=== PATIENT | female | born 1990 | race African-American/Black ===

== ENCOUNTER 2016-10-29 18:47 | Emergency (ER) | payer OTHER ==
[~2016-10-29 18:47] MED LIST: DICY10CA3 PO; HYDR-971 PO; NAPR500T PO; ONDA4TAB10 SL
[2016-10-29] MEDS ORDERED: DEXAMETHASONE SOD PHOS 20 MG/5 ML VIAL. IV ONE (19:15)
[2016-10-29] MEDS ORDERED: DIPHENHYDRAMINE 50 MG/ML VIAL IVP ONE (19:15)
[2016-10-29] MEDS ORDERED: IV NORMAL SALINE 1000ML BAG 1,000 ML IV ONE (19:15)
[2016-10-29] MEDS ORDERED: KETOROLAC TROMETHAMINE 30 MG/ML SYRINGE. IV ONE (19:15)
[2016-10-29] MEDS ORDERED: PROCHLORPERAZINE 10 MG/2 ML VIAL. IV ONE (19:15)
--- NOTE | 2016-10-29 19:25 | PHYS DOC ---
Past Medical History Past Medical History: Asthma, Migraines Additional Past Medical Histor: interstitial cystitis, neutropenia, unspecified immune deficiency Past Surgical History: Appendectomy, Tonsillectomy Additional Past Surgical Histo: D&C, HERNIA REPAIR, laparotomy for abcsess Additional Information: nonsmoker Alcohol Use: None Drug Use: None Adult General Chief Complaint Chief Complaint: HEADACHE HPI HPI Patient is a 26 year old female with history of migraine headaches who presents with headache typical of her migraines starting at 0900 today. The onset was gradual. She had her typical aura of tingling in the hands prior to the onset of the headache. She has photophobia and bilateral blurred vision. She feels dizzy. She has had nausea with 5 episodes of emesis. She denies fever. She takes daily metoprolol for prophylaxis. She also took Tylenol, Lyrica , and protriptyline today without relief of her headache. She sees a PCP at [facility]. Review of Systems Review of Systems Constitutional: Denies fever or chills. [] Eyes: Denies redness, or eye pain. Reports bilateral blurred vision and photophobia. HENT: Denies ear pain or sore throat. Reports nasal congestion. Respiratory: Denies cough or shortness of breath. [] Cardiovascular: Denies chest pain, palpitations or edema. [] GI: Denies abdominal pain, bloody stools or diarrhea. Reports nausea and vomiting. : Denies dysuria, hematuria or urinary frequency. [] Musculoskeletal: Denies back pain or joint pain. [] Integument: Denies rash or skin lesions. [] Neurologic: Denies focal weakness or sensory changes. Reports migraine headache and dizziness. Endocrine: Denies polyuria or polydipsia. [] Psych: Denies anxiety or depression. [] All systems reviewed and negative unless otherwise stated in the HPI. Current Medications Current Medications Current Medications Medications (Trade) Dose Ordered Sig/Thalia Start Time Stop Time Status Last Admin Dose Admin Dexamethasone Sodium Phosphate (Decadron) 10 mg 1X ONCE 10/29/16 19:15 10/29/16 19:16 DC 10/29/16 19:43 10 MG Dihydroergotamine Mesylate (Dhe) 1 mg 1X ONCE 10/29/16 21:00 10/29/16 21:01 DC 10/29/16 21:16 1 MG Diphenhydramine HCl (Benadryl) 25 mg 1X ONCE 10/29/16 19:15 10/29/16 19:16 DC 10/29/16 19:41 25 MG Ketorolac Tromethamine 30 mg 30 mg 1X ONCE 10/29/16 19:15 10/29/16 19:16 DC 10/29/16 19:43 30 MG Prochlorperazine Edisylate (Compazine) 10 mg 1X ONCE 10/29/16 19:15 10/29/16 19:16 DC 10/29/16 19:43 10 MG Sodium Chloride (Iv Sodium Chloride 0.9% 1000ml Bag) 1,000 ml @ 1,000 mls/hr 1X ONCE 10/29/16 19:15 10/29/16 20:14 DC 10/29/16 19:44 1,000 MLS/HR Allergies Allergies Allergies Coded Allergies Type Severity Reaction Last Updated Verified metoclopramide Adverse Reaction Intermediate IMPACTION 06/20/15 Yes prednisone Adverse Reaction Intermediate MIGRAINES 06/20/15 Yes Physical Exam Physical Exam Constitutional: Well developed, well nourished, no acute distress, non-toxic appearance. [] HENT: Normocephalic, atraumatic, bilateral external ears normal, oropharynx moist, no oral exudates, nose normal. Bilateral TMs without erythema or bulging. There is no posterior pharyngeal erythema or tonsillar edema. Eyes: PERRLA, EOMI, conjunctiva normal, no discharge. [] Neck: Normal range of motion, no tenderness, supple, no stridor. There is no nuchal rigidity or meningeal signs. Cardiovascular: Heart rate regular rhythm, no murmur [] Lungs & Thorax: Bilateral breath sounds clear to auscultation without wheezing , rales, or rhonchi. Abdomen: Bowel sounds normal, soft, no tenderness, no masses, no pulsatile masses. [] Skin: Warm, dry, no erythema, no rash. [] Back: No tenderness, no CVA tenderness. [] Extremities: No tenderness, no cyanosis, no clubbing, ROM intact, no edema. [] Neurologic: Alert and oriented X 3, normal motor function, normal sensory function, no focal deficits noted. CN II-XII grossly intact. The patient walks with a normal steady gait. Psychologic: Affect normal, judgement normal, mood normal. [] Current Patient Data Vital Signs Vital Signs Date Time Temp Pulse Resp B/P Pulse Ox O2 Delivery O2 Flow Rate FiO2 10/29/16 20:20 77 18 113/70 99 Room Air 10/29/16 18:53 98.5 98.5 Lab Values Laboratory Tests Test 10/29/16 18:17 POC Urine HCG, Qualitative Hcg negative (Negative) EKG EKG [] Radiology/Procedures Radiology/Procedures [] Course & Med Decision Making Course & Med Decision Making Pertinent Labs and Imaging studies reviewed. (See chart for details) Patient with history of migraine headaches presents with headache typical of her usual migraines today. Her usual migraine medications did not help at home. On exam, there are no neurologic deficits, nuchal rigidity, or meningeal signs. She is given IV migraine cocktail including Phenergan, Benadryl, Decadron, Toradol, and normal saline bolus. Pain improved to 4-5/10. She was then given DHE with resolution of her headache. She complained of continued nausea after the DHE. Nausea resolved with Zofran. She is discharged home in stable condition. She is instructed to continue her home migraine medications. Return precautions were discussed. She verbalizes understanding and agrees with plan. Dragon Disclaimer Dragon Disclaimer This electronic medical record was generated, in whole or in part, using a voice recognition dictation system. Departure Departure Impression: Primary Impression: Migraine Disposition: 01 HOME, SELF-CARE Condition: IMPROVED Referrals: NO PCP (PCP) Patient Instructions: Migraine Headache, [id number] Additional Instructions: You were seen today for migraine headache. Please continue to take your home medications for migraines. Please follow-up with your primary care doctor within the next week. Return to the emergency department if you have any new or concerning symptoms. Problem Qualifiers Primary Impression: Migraine Migraine type: with aura Status migrainosus presence: without status migrainosus Intractability: not intractable Qualified Code: G43.109 - Migraine with aura, not intractable, without status migrainosus JOSE JUAN MORE Oct 29, 2016 19:24
[2016-10-29] MEDS ORDERED: DIHYDROERGOTAMINE 1 MG/ML AMPUL. IVP ONE (21:00)
[2016-10-29 21:50] VITALS: BP 123/83
[2016-10-29] MEDS ORDERED: ONDANSETRON PF 4 MG/2 ML VIAL. IV ONE (22:00)
== END 2016-10-29 22:20 | disposition home or self-care (01) ==
LOC: ER 18:47
DX: G43.109 Migraine with aura, not intractable, without status migrainosus (principal); J45.909 Unspecified asthma, uncomplicated; Z88.8 Allergy status to other drugs, medicaments and biological substances
CPT/HCPCS: 81025; 96361; 96374; 96375; 99284; J0780; J1100; J1110; J1200; J1885; J2405; J7030

== ENCOUNTER 2016-12-14 22:57 | Emergency (ER) | payer OTHER ==
[~2016-12-14] VITALS: Ht 152.4 cm; Wt 82.6 kg
[2016-12-14 23:16] LABS: BILIRUBIN,URINE NEGATIVE (NEG); GLUCOSE,URINE NEGATIVE (NEG); NITRITE,URINE NEGATIVE (NEG); PH,URINE 5.5; PROTEIN,URINE NEGATIVE (NEG-TRACE); UROBILINOGEN,URINE 0.2 mg/dL (0.2 mg/dL)
[2016-12-14 23:17] LABS: NEG OBC UR NEG; POS OBC UR POS
[2016-12-14 23:29] LABS: BACTERIA,URINE 0 /HPF (0-FEW); RBC,URINE 0 /HPF (0-2); SQUAMOUS EPITHELIAL CELL,UR FEW /LPF; WBC,URINE OCC /HPF (0-4)
[2016-12-14] MEDS ORDERED: ONDANSETRON PF 4 MG/2 ML VIAL. IV ONE (23:30)
[2016-12-14] MEDS ORDERED: MORPHINE SULFATE 4 MG/ML DISP.SYRIN. IV ONE (23:30)
[2016-12-14] MEDS ORDERED: CONTRAST GIVEN MC PRN (23:45)
[2016-12-14] MEDS ORDERED: IOHEXOL 300 MG/ML 75 ML VIAL IV ONE (23:45)
--- NOTE | 2016-12-14 23:52 | PHYS DOC ---
Past Medical History Past Medical History: Asthma, Migraines Additional Past Medical Histor: interstitial cystitis, neutropenia, unspecified immune deficiency Past Surgical History: Appendectomy, Tonsillectomy Additional Past Surgical Histo: D&C, HERNIA REPAIR, laparotomy for abcsess Alcohol Use: None Drug Use: None Adult General Chief Complaint Chief Complaint: ABDOMINAL PAIN HPI HPI 26-year-old female who's having significant right inguinal pain for the last several months but it has acutely worsened for the last several days while she exerts herself. She has history of hernia repair 6 years prior in this region. Patient also has history of appendectomy. She states she has mild nausea with no vomiting. Upon my initial assessment, the patient is afebrile and nontoxic in appearance. She states she will occasionally feel the area bulge and she will push it back in. Review of Systems Review of Systems Constitutional: Denies fever or chills [] Eyes: Denies change in visual acuity, redness, or eye pain [] HENT: Denies nasal congestion or sore throat [] Respiratory: Denies cough or shortness of breath [] Cardiovascular: No additional information not addressed in HPI [] GI: Has abdominal pain, has nausea, denies vomiting, denies bloody stools or diarrhea [] : Denies dysuria or hematuria [] Musculoskeletal: Denies back pain or joint pain [] Integument: Denies rash or skin lesions [] Neurologic: Denies headache, focal weakness or sensory changes [] Endocrine: Denies polyuria or polydipsia [] Current Medications Current Medications Current Medications Medications (Trade) Dose Ordered Sig/Thalia Start Time Stop Time Status Last Admin Dose Admin Info (Do NOT chart on this entry -- for MONITORING) 1 each PRN DAILY PRN 12/14/16 23:45 12/16/16 23:44 Iohexol (Omnipaque 300 Mg/ml) 75 ml 1X ONCE 12/14/16 23:45 12/14/16 23:46 DC 12/15/16 00:38 75 ML Morphine Sulfate 4 mg 1X ONCE 12/14/16 23:30 12/14/16 23:31 DC 12/15/16 00:07 4 MG Ondansetron HCl (Zofran) 4 mg 1X ONCE 12/14/16 23:30 12/14/16 23:31 DC 12/15/16 00:07 4 MG Allergies Allergies Allergies Coded Allergies Type Severity Reaction Last Updated Verified metoclopramide Adverse Reaction Intermediate IMPACTION 06/20/15 Yes prednisone Adverse Reaction Intermediate MIGRAINES 06/20/15 Yes Physical Exam Physical Exam Constitutional: Well developed, well nourished, no acute distress, non-toxic appearance. [] HENT: Normocephalic, atraumatic, bilateral external ears normal, oropharynx moist, no oral exudates, nose normal. [] Eyes: PERRLA, EOMI, conjunctiva normal, no discharge. [] Neck: Normal range of motion, no tenderness, supple, no stridor. [] Cardiovascular:Heart rate regular rhythm, no murmur [] Lungs & Thorax: Bilateral breath sounds clear to auscultation [] Abdomen: Bowel sounds normal, soft, moderate inguinal tenderness to the right with no palpable hernia or mass, no masses, no pulsatile masses. [] Skin: Warm, dry, no erythema, no rash. [] Back: No tenderness, no CVA tenderness. [] Extremities: No tenderness, no cyanosis, no clubbing, ROM intact, no edema. [] Neurologic: Alert and oriented X 3, normal motor function, normal sensory function, no focal deficits noted. [] Psychologic: Affect normal, judgement normal, mood normal. [] Current Patient Data Vital Signs Vital Signs Date Time Temp Pulse Resp B/P (MAP) Pulse Ox O2 Delivery O2 Flow Rate FiO2 12/15/16 00:07 18 12/14/16 23:57 87 105/63 (77) 98 Room Air 12/14/16 23:15 98.1 98.1 Lab Values Laboratory Tests Test 12/14/16 22:15 12/14/16 23:05 12/14/16 23:55 12/15/16 00:29 POC Urine HCG, Qualitative Hcg negative (Negative) Urine Collection Type Unknown Urine Color Yellow Urine Clarity Clear Urine pH 5.5 Urine Specific [place] 1.025 Urine Protein Negative mg/dL (NEG-TRACE) Urine Glucose (UA) Negative mg/dL (NEG) Urine Ketones (Stick) Negative mg/dL (NEG) Urine Blood Negative (NEG) Urine Nitrite Negative (NEG) Urine Bilirubin Negative (NEG) Urine Urobilinogen Dipstick 0.2 mg/dL (0.2 mg/dL) Urine Leukocyte Esterase Negative (NEG) Urine RBC 0 /HPF (0-2) Urine WBC Occ /HPF (0-4) Urine Squamous Epithelial Cells Few /LPF Urine Bacteria 0 /HPF (0-FEW) Urine Mucus Mod /LPF Urine Test Negative (NEG) White Blood Count 6.8 x10^3/uL (4.0-11.0) Red Blood Count 4.79 x10^6/uL (3.50-5.40) Hemoglobin 14.1 g/dL (12.0-15.5) Hematocrit 41.6 % (36.0-47.0) Mean Corpuscular Volume 87 fL (79-100) Mean Corpuscular Hemoglobin 29 pg (25-35) Mean Corpuscular Hemoglobin Concent 34 g/dL (31-37) Red Cell Distribution Width 14.3 % (11.5-14.5) Platelet Count 234 x10^3/uL (140-400) Neutrophils (%) (Auto) 47 % (31-73) Lymphocytes (%) (Auto) 40 % (24-48) Monocytes (%) (Auto) 10 % (0-9) H Eosinophils (%) (Auto) 3 % (0-3) Basophils (%) (Auto) 1 % (0-3) Neutrophils # (Auto) 3.2 x10^3uL (1.8-7.7) Lymphocytes # (Auto) 2.7 x10^3/uL (1.0-4.8) Monocytes # (Auto) 0.7 x10^3/uL (0.0-1.1) Eosinophils # (Auto) 0.2 x10^3/uL (0.0-0.7) Basophils # (Auto) 0.0 x10^3/uL (0.0-0.2) Sodium Level 139 mmol/L (136-145) Potassium Level 3.7 mmol/L (3.5-5.1) Chloride Level 104 mmol/L (98-107) Carbon Dioxide Level 27 mmol/L (21-32) Anion Gap 8 (6-14) Blood Urea Nitrogen 16 mg/dL (7-20) Creatinine 0.7 mg/dL (0.6-1.0) Estimated GFR (Cockcroft-Gault) 124.4 Glucose Level 95 mg/dL (70-99) Calcium Level 8.2 mg/dL (8.5-10.1) L Laboratory Tests 12/14/16 23:55 Laboratory Tests 12/15/16 00:29 EKG EKG [] Radiology/Procedures Radiology/Procedures [] Course & Med Decision Making Course & Med Decision Making Pertinent Labs and Imaging studies reviewed. (See chart for details) 26-year-old female is having significant right inguinal pain and will have imaging to rule out an acute abnormality with her known hernia with mesh. I counseled her that she will likely need a mesh repair as her symptoms seem to be acutely worsening and not improving. Laboratory workup was unremarkable. A CT of her abdomen and pelvis is pending at this time. I discussed the case with Dr. Sears. If her CT reveals any acute findings, they will be addressed. If her CT is negative, she will be safe to be discharged home with close follow-up with a general surgeon for her likely hernia related pain. Prescriptions for [place] and Zofran were prescribed. Dragon Disclaimer Dragon Disclaimer This electronic medical record was generated, in whole or in part, using a voice recognition dictation system. Departure Departure Impression: Primary Impression: Abdominal pain Additional Impression: Inguinal hernia Disposition: 01 HOME, SELF-CARE Admitting Physician: Other Condition: STABLE Referrals: NO PCP (PCP) Patient Instructions: Inguinal Hernia, Adult Additional Instructions: Please follow up with the surgeon as discussed for your hernia related pain. Take your pain medication as prescribed and avoid any strenuous activities that may exacerbate your pain. Return to the ER if you develop any worsening of your symptoms. Scripts Ondansetron Hcl (ZOFRAN) 4 Mg Tablet 4 MG PO BID Y for NAUSEA/VOMITING, #10 TAB Prov: MADISON PADILLA DO 12/15/16 Hydrocodone/Apap 5-325 (NORCO 5-325 TABLET) 1 Each Tablet 1 TAB PO PRN Q6HRS Y for PAIN, #10 TAB 0 Refills Prov: MADISON PADILLA DO 12/15/16 Problem Qualifiers MADISON PADILLA DO December 14, 2016 23:52
[2016-12-15 00:05] LABS: BASO % 1 % (0-3); EOS % 3 % (0-3); HEMATOCRIT 41.6 % (36.0-47.0); HEMOGLOBIN 14.1 g/dL (12.0-15.5); LYMPH # 2.7 x10^3/uL (1.0-4.8); LYMPH % 40 % (24-48); MEAN CORPUSCULAR HEMOGLOBIN 29 pg (25-35); MEAN CORPUSCULAR HGB CONC 34 g/dL (31-37); MEAN CORPUSCULAR VOLUME 87 fL (79-100); MONO % 10 % (0-9); NEUT % 47 % (31-73); PLATELET COUNT 234 x10^3/uL (140-400); RED BLOOD COUNT 4.79 x10^6/uL (3.50-5.40); RED CELL DISTRIBUTION WIDTH 14.3 % (11.5-14.5); WHITE BLOOD COUNT 6.8 x10^3/uL (4.0-11.0)
[2016-12-15 00:44] LABS: CALCIUM 8.2 mg/dL (8.5-10.1); CREATININE 0.7 mg/dL (0.6-1.0); GFR 124.4; POTASSIUM 3.7 mmol/L (3.5-5.1)
[2016-12-15] MEDS ORDERED: HYDR-971 PO (01:33)
[2016-12-15] MEDS ORDERED: ONDA4TAB7 PO (01:33)
--- NOTE | 2016-12-15 01:42 | RAD ---
PROCEDURE CT abdomen pelvis with contrast. HISTORY Abdominal pain, right lower quadrant on and off times several months. TECHNIQUE Helical CT imaging of the abdomen and pelvis is performed after 75 cc Omnipaque 300 IV contrast. Oral contrast not given. PQRS: One or more the following individualized dose reduction techniques were utilized for the study: 1. Automated exposure control. 2. Adjustment of the mA and/or kV according to patient size. 3. Use of iterative reconstruction technique. COMPARISON CT abdomen pelvis with contrast, August 05, 2016. FINDINGS The lung bases are essentially clear. Cardiac size normal. The liver, gallbladder, spleen, pancreas, adrenal glands, abdominal aorta, and kidneys are normal. Evaluation of bowel may be limited without oral contrast. No obvious abnormality of the stomach. Mild diastases of rectus abdominis muscles with protrusion of fat and bowel. There is a wide neck. No obstruction. No dilated small bowel. Moderate colon stool volume. No colon wall thickening is identified. No secondary signs of appendicitis. No abdominal adenopathy or free fluid. Urinary bladder is normal. Uterus unremarkable. Mild pelvic free fluid. Ovaries not well evaluated with CT. No acute bone abnormality. IMPRESSION 1. No acute abdominal or pelvic abnormality. 2. Moderate colon stool volume. 3. Mild pelvic free fluid, probably physiologic. Electronically signed by: Edy Rose MD (December 15, 2016 01:41:01)
[2016-12-15 02:25] VITALS: BP 99/54
== END 2016-12-15 02:29 | disposition home or self-care (01) ==
LOC: ER 22:57
DX: K40.90 Unilateral inguinal hernia, without obstruction or gangrene, not specified as recurrent (principal); J45.909 Unspecified asthma, uncomplicated; D84.9 Immunodeficiency, unspecified; G43.909 Migraine, unspecified, not intractable, without status migrainosus; Z88.8 Allergy status to other drugs, medicaments and biological substances; Z98.890 Other specified postprocedural states; Z90.49 Acquired absence of other specified parts of digestive tract
CPT/HCPCS: 36415; 74177; 80048; 81001; 81025; 84703; 85027; 96374; 96375; 99285; J2270; J2405; Q9967